=== PATIENT | male | born 1955 | race African-American/Black ===

== ENCOUNTER 2021-01-22 13:21 | Outpatient (CLI) | payer MEDICARE, MEDICAID ==
[~2021-01-22 13:21] MED LIST: Magnevist 469MG/ML 20 ML VIAL ONE
[2021-01-22 14:04] LABS: Estimated GFR-MDRD - POC Greater than 90
== END 2021-01-22 13:22 | disposition home or self-care (01) ==
LOC: TBSIIMAG 13:21
PROVIDERS: ATTEND Radiology Radiation Oncology
DX: C61 Malignant neoplasm of prostate (principal)
CPT/HCPCS: 72197; 82565